=== PATIENT | female | born 1980 | race Caucasian/White ===

== ENCOUNTER 2017-10-08 14:18 | Emergency (ER) | payer SELFPAY ==
[~2017-10-08] VITALS: Ht 152.4 cm; Wt 77.3 kg
[2017-10-08 14:22] VITALS: BP 117/82; PULSE 107; RESP 16; TEMP 98.2; O2SAT 98
--- NOTE | 2017-10-08 16:39 | RADRPT ---
EXAM DATE/TIME: 10/08/2017 15:34 [place] COMPARISON: No previous studies available for comparison. INDICATIONS : Left shoulder pain since falling today. MEDICAL HISTORY : None. SURGICAL HISTORY : None. ENCOUNTER: Initial ACUITY: 1 day PAIN SCORE: 10/10 LOCATION: Left shoulder. FINDINGS: Mild degenerative changes are noted involving the left glenohumeral joint and acromioclavicular joint . Spurring is noted along the inferior aspect of the acromium. No acute fracture or dislocation is no sue. CONCLUSION: 1. Mild degenerative changes involving the left glenohumeral and acromioclavicular joints. 2. Spurring is noted along the inferior aspect of the acromion. 3. No acute fracture or dislocation. Sameer Wick MD on October 08, 2017 at 16:35 Board Certified Radiologist. This report was verified electronically.
[2017-10-08] MEDS ORDERED: DICL75TA PO (17:22)
--- NOTE | 2017-10-08 17:25 | PD ---
HPI Chief Complaint: Injury Time Seen by Provider: 17:10 Travel History International Travel<30 days: No Contact w/Intl Traveler<30days: No Traveled to known affect area: No History of Present Illness HPI 37-year-old female here with left shoulder pain. She reports that she slipped on a rug this morning and hit her left shoulder against the counter. She now has left shoulder pain which is throbbing and worse with any sort of movement. She has been applying ice to the area. She has no other complaints at this time. PFSH Past Medical History ?: Not Social History Alcohol Use: No Tobacco Use: No Allergies-Medications (Allergen,Severity, Reaction): Coded Allergies: No Known Allergies (Unverified , 10/08/17) Review of Systems General / Constitutional: No: Fever, Chills HENT: No: Headaches Musculoskeletal: Positive: Limited ROM, Pain Skin: Positive Other (denies open wounds) Physical Exam Narrative GENERAL: Well-nourished female in no acute distress SKIN: Warm and dry. No open wounds. No ecchymosis. HEAD: Atraumatic. Normocephalic. CARDIOVASCULAR: Regular rate and rhythm. No murmur appreciated. RESPIRATORY: No accessory muscle use. Clear to auscultation. Breath sounds equal bilaterally. MUSCULOSKELETAL: No obvious deformities. Generalized tenderness to palpation to left shoulder joint. The patient declines passive or active range of motion of the left shoulder secondary to pain. Normal remedial reading teacher strength. 505 muscle strength and arm flexion and extension. NEUROLOGICAL: Awake and alert. No obvious cranial nerve deficits. Motor grossly within normal limits. Normal speech. Data Data Last Documented VS Vital Signs Date Time Temp Pulse Resp B/P (MAP) Pulse Ox O2 Delivery O2 Flow Rate FiO2 10/08/17 14:22 98.2 107 16 117/82 (94) 98 Orders Orders Shoulder, Limited(2vws) (10/08/17 ) Ketorolac Inj (Toradol Inj) (10/08/17 17:30) Support Splint (10/08/17 17:21) Ed Discharge Order (10/08/17 17:21) [facility] Medical Decision Making Medical Screen Exam Complete: Yes Emergency Medical Condition: Yes Medical Record Reviewed: Yes Differential Diagnosis Left shoulder contusion, acromioclavicular separation, proximal humeral fracture Narrative Course X-ray imaging is negative, sling for short-term use, NSAIDs, follow-up with primary care physician in one to 2 weeks. Diagnosis Primary Impression: Contusion of left shoulder Referrals: [facility] Patient Instructions: Contusion in Adults (ED), General Instructions Additional Instructions: Ice the affected area several times a day. Perform passive range of motion several times a day. Sling for short-term daily use only. Diclofenac with meals. Follow-up with primary care physician in one to 2 weeks. If symptoms persist outpatient MRI imaging may be warranted. Med/Other Pt SpecificInfo: Prescription(s) given, Orthopedic Instructions Scripts Diclofenac Sodium DR (Diclofenac Sodium DR) 75 Mg Tabdr 75 MG PO BID for 10 Days, #20 TAB 0 Refills Prov: Daphnie Burdick MD 10/08/17 Disposition: 01 DISCHARGE HOME Condition: Stable Delfino Crespo Oct 08, 2017 17:25
[2017-10-08] MEDS ORDERED: KETOROLAC TROMETHAMINE 60 MG/2 ML (IM) VIAL IM ONE (17:30)
== END 2017-10-08 17:38 | disposition home or self-care (01) ==
LOC: NEPK 14:18
DX: S40.012A Contusion of left shoulder, initial encounter (principal); W01.198A Fall on same level from slipping, tripping and stumbling with subsequent striking against other object, initial encounter
CPT/HCPCS: 73030; 96372; 99283; J1885

== ENCOUNTER 2018-01-08 11:09 | Emergency (ER) | payer SELFPAY ==
[~2018-01-08] VITALS: Ht 149.9 cm; Wt 66.0 kg
[~2018-01-08 11:09] MED LIST: DICL75TA PO
[2018-01-08 11:18] VITALS: BP 162/85; PULSE 93; RESP 18; TEMP 98.3; O2SAT 100
[2018-01-08] MEDS ORDERED: CLON1 PO (11:52)
[2018-01-08] MEDS ORDERED: CYCL5TAB PO (12:28)
[2018-01-08] MEDS ORDERED: PRED10PA2 PO (12:28)
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
[2018-01-08] MEDS ORDERED: KETOROLAC TROMETHAMINE 60 MG/2 ML (IM) VIAL IM ONE (12:30)
[2018-01-08] MEDS ORDERED: MECL12.574 PO (12:45)
== END 2018-01-08 13:10 | disposition home or self-care (01) ==
LOC: NEPD 11:09
DX: S43.422A Sprain of left rotator cuff capsule, initial encounter (principal); H81.10 Benign paroxysmal vertigo, unspecified ear; T74.11XA Adult physical abuse, confirmed, initial encounter; Y09 Assault by unspecified means; Y07.9 Unspecified perpetrator of maltreatment and neglect
CPT/HCPCS: 96372; 99283; J1885